=== PATIENT | male | born 1955 | race Hispanic/Latino ===

== ENCOUNTER → 2019-07-30 | Outpatient (CLI) | payer OTHER ==
[2019-07-28 09:34] LABS: BASOPHILS # (AUTO) 0.1 (0.0-0.1); BASOPHILS % 0.7 % (0.0-1.0); EOSINOPHILS # (AUTO) 0.2 (0.0-0.4); EOSINOPHILS % 2.2 % (0.0-6.0); HEMOGLOBIN 15.7 g/dL (14.0-18.0); LYMPHOCYTES # (AUTO) 3.5 (1.0-3.2); LYMPHOCYTES % 38.6 % (18.0-39.1); MEAN CORPUSCULAR HEMOGLOBIN 31.5 pg (28-32); MEAN CORPUSCULAR HGB CONC 34.1 g/dL (31-35); MEAN CORPUSCULAR VOLUME 92.4 fL (81-99); MONOCYTES # (AUTO) 0.7 (0.2-0.8); MONOCYTES % 7.2 % (4.4-11.3); NEUTROPHILS # (AUTO) 4.7 (2.1-6.9); NEUTROPHILS % 50.8 % (38.7-80.0); PLATELET COUNT 213 x10e3/uL (140-360); RED BLOOD COUNT 4.98 x10e6/uL (4.3-5.7); RED CELL DISTRIBUTION WIDTH 11.5 % (11.7-14.4)
[2019-07-28 09:58] LABS: ALANINE AMINOTRANSFERASE 24 IU/L (0-55); ALBUMIN 4.3 g/dL (3.5-5.0); ALBUMIN/GLOBULIN RATIO 1.3 (0.8-2.0); ALKALINE PHOSPHATASE 147 IU/L (40-150); ANION GAP 16.3 mmol/L (8-16); BLOOD UREA NITROGEN 15 mg/dL (7-26); BUN/CREATININE RATIO 14 (6-25); CALCIUM 10.3 mg/dL (8.4-10.2); CARBON DIOXIDE 26 mmol/L (22-29); CHLORIDE 98 mmol/L (98-107); CREATININE, SERUM 1.04 mg/dL (0.72-1.25); EST GLOMERULAR FILTRATION RATE > 60 ML/MIN (60-); POTASSIUM 4.3 mmol/L (3.5-5.1); SODIUM 136 mmol/L (136-145)
[2019-07-28 10:07] LABS: GLUCOSE 403 mg/dL (74-118)
[~2019-07-30] MED LIST: INSULIN REGULAR, HUMAN 100 UNIT/1 ML 3ML VIAL ONE; LOSARTAN-HCTZ1 EACH PO; METFORMIN HCL500 MG PO
== END ==
LOC: RAD 05:53 → OR 05:53 → EDSTATUS 09:00 → EDSEX 09:00
PROVIDERS: ATTEND Surgery
DX: Z01.818 Encounter for other preprocedural examination (principal); K40.90 Unilateral inguinal hernia, without obstruction or gangrene, not specified as recurrent; Z53.8 Procedure and treatment not carried out for other reasons
CPT/HCPCS: 36415; 80053; 82948; 85025; 93005; J1817